=== PATIENT | female | born 1960 | race Caucasian/White ===

== ENCOUNTER 2016-08-25 14:56 | Emergency (ER) | payer OTHER ==
[~2016-08-25] VITALS: Ht 152.4 cm; Wt 49.9 kg
[2016-08-25] MEDS ORDERED: CLONIDINE0.1 PO (15:17)
[2016-08-25 16:15] VITALS: BP 160/91
== END 2016-08-25 16:15 | disposition home or self-care (01) ==
LOC: ER 14:56
DX: S01.81XA Laceration without foreign body of other part of head, initial encounter (principal); W01.198A Fall on same level from slipping, tripping and stumbling with subsequent striking against other object, initial encounter; Y93.89 Activity, other specified; Y92.89 Other specified places as the place of occurrence of the external cause; Y99.0 Civilian activity done for income or pay